=== PATIENT | male | born 1955 | race Caucasian/White ===

== ENCOUNTER → 2020-01-30 | Outpatient (CLI) | payer BC ==
--- NOTE | 2020-01-30 14:39 | US ---
EXAMINATION TYPE: US kidneys/renal and bladder DATE OF EXAM: 01/30/2020 COMPARISON: NONE CLINICAL HISTORY: R31.9 HEMATURIA. Macroscopic hematuria. No pain. EXAM MEASUREMENTS: Right Kidney: 11.2 x 5.7 x 6.7 cm Left Kidney: 11.1 x 5.7 x 6.0 cm Right Kidney: No hydronephrosis or masses seen Left Kidney: No hydronephrosis or masses seen Bladder: Incompletely distended, anechoic Bilateral Jets seen There is no evidence for hydronephrosis at this point in time. No nephrolithiasis is seen. No wilfrid s are identified. The urinary bladder is anechoic. Bilateral ureteral jets are seen. IMPRESSION: Unremarkable renal ultrasound. No hydronephrosis or nephrolithiasis seen.
== END | disposition home or self-care (01) ==
LOC: RADUSWWP 13:59
PROVIDERS: ATTEND Internal Medicine
DX: R31.9 Hematuria, unspecified (principal)
CPT/HCPCS: 76770

== ENCOUNTER 2021-09-22 20:46 | Emergency (ER) | payer BC, MEDICARE ==
[2021-09-22 22:03] VITALS: TEMP 97.9
[2021-09-22] MEDS ORDERED: NAFCILLIN 2 GM in DEXTROSE 5% IN WATER 100 ML IVPB ONE ×2 (23:00)
--- NOTE | 2021-09-22 23:01 | ED ---
Extremity Problem HPI - General Chief complaint: Extremity Problem,Nontraumatic Stated complaint: R Leg Swelling/Redness Time Seen by Provider: 09/22/21 22:37 Source: patient Mode of arrival: ambulatory Limitations: no limitations - History of Present Illness Initial comments: This is a 65-year-old man who presents to have evaluation of his right lower leg. The patient states that he went to take a shower tonight and noticed that there was swelling, redness and warmth of the right leg. He had been in usual state of health until about 2 days ago. He states that yesterday he had taken the day off work because she was feeling fatigued and rundown. He was feeling a little better today and went to work. After work he was going to take a shower, he noticed that his right leg was red and swollen and presents here to be evaluated. The patient denies fever or chills. He has not had chest pain, dyspnea, hemoptysis, palpitations or lightheadedness. MD Complaint: extremity pain, extremity swelling -: hour(s) Location: right, lower extremity History of Same: No Radiation: none Quality: dull Consistency: constant Improves with: nothing Worsens with: nothing - Related Data Previous Rx's Medication Instructions Recorded Cephalexin [Keflex] 500 mg PO Q6HR #28 cap 09/23/21 Sulfamethox-Tmp 800-160Mg [Bactrim 2 each PO Q12HR #28 tab 09/23/21 Ds] Allergies Allergy/AdvReac Type Severity Reaction Status Date / Time No Known Allergies Allergy Verified 09/22/21 21:58 Review of Systems ROS Statement: Those systems with pertinent positive or pertinent negative responses have been documented in the HPI. ROS Other: All systems not noted in ROS Statement are negative. Constitutional: Denies: fever, chills, weakness Respiratory: Denies: cough, dyspnea, hemoptysis Cardiovascular: Reports: as per HPI, edema. Denies: chest pain, palpitations, orthopnea, syncope Endocrine: Reports: fatigue Gastrointestinal: Denies: abdominal pain, vomiting, diarrhea Genitourinary: Denies: dysuria, hematuria Musculoskeletal: Reports: as per HPI, myalgia. Denies: back pain Skin: Denies: rash Neurological: Denies: headache, weakness, numbness Past Medical History Past Medical History: GERD/Reflux, Hypertension, Prostate Disorder History of Any Multi-Drug Resistant Organisms: None Reported Past Surgical History: Hernia Repair, Joint Replacement Past Psychological History: No Psychological Hx Reported Smoking Status: Never smoker Past Alcohol Use History: Occasional Past Drug Use History: None Reported General Exam Limitations: no limitations General appearance: alert, in no apparent distress Head exam: Present: atraumatic, normocephalic Eye exam: Present: normal appearance. Absent: scleral icterus, conjunctival injection ENT exam: Present: normal oropharynx Neck exam: Present: normal inspection Respiratory exam: Present: normal lung sounds bilaterally. Absent: respiratory distress, wheezes, rales, rhonchi, stridor, accessory muscle use Cardiovascular Exam: Present: regular rate, normal rhythm, normal heart sounds. Absent: systolic murmur, diastolic murmur GI/Abdominal exam: Present: soft. Absent: distended, tenderness, guarding, rebound, rigid, mass Extremities exam: Present: normal inspection, normal capillary refill, pedal edema (Right lower leg). Absent: calf tenderness Back exam: Present: normal inspection. Absent: CVA tenderness (R), CVA te nderness (L) Neurological exam: Present: alert Skin exam: Present: warm, dry, intact, erythema (Right leg proximal to the medial malleolus.) Course Vital Signs 09/22/21 09/22/21 21:59 23:49 Temperature 97.9 F Pulse Rate 71 68 Respiratory 20 18 Rate Blood Pressure 161/83 133/58 O2 Sat by Pulse 95 98 Oximetry Medical Decision Making - Lab Data Result diagrams: 09/22/21 23:08 09/22/21 23:08 Lab Results 09/22/21 09/22/21 Range/Units 23:08 23:08 WBC 9.3 (3.8-10.6) k/uL RBC 4.89 (4.30-5.90) m/uL Hgb 13.8 (13.0-17.5) gm/dL Hct 43.0 (39.0-53.0) % MCV 87.9 (80.0-100.0) fL MCH 28.3 (25.0-35.0) pg MCHC 32.1 (31.0-37.0) g/dL RDW 13.0 (11.5-15.5) % Plt Count 199 (150-450) k/uL MPV 7.2 Neutrophils % 71 % Lymphocytes % 14 % Monocytes % 9 % Eosinophils % 3 % Basophils % 1 % Neutrophils # 6.6 (1.3-7.7) k/uL Lymphocytes # 1.3 (1.0-4.8) k/uL Monocytes # 0.8 (0-1.0) k/uL Eosinophils # 0.3 (0-0.7) k/uL Basophils # 0.1 (0-0.2) k/uL Sodium 138 (137-145) mmol/L Potassium 4.3 (3.5-5.1) mmol/L Chloride 106 (98-107) mmol/L Carbon Dioxide 22 (22-30) mmol/L Anion Gap 10 mmol/L BUN 32 H (9-20) mg/dL Creatinine 1.11 (0.66-1.25) mg/dL Est GFR (CKD-EPI)AfAm 79 (>60 ml/min/1.73 sqM) Est GFR (CKD-EPI)NonAf 69 (>60 ml/min/1.73 sqM) Glucose 139 H (74-99) mg/dL Calcium 9.7 (8.4-10.2) mg/dL C-Reactive Protein 14.7 H (<1.0) mg/dL Disposition Clinical Impression: Cellulitis Disposition: HOME SELF-CARE Condition: Good Instructions (If sedation given, give patient instructions): Cellulitis (ED) Prescriptions: Sulfamethox-Tmp 800-160Mg [Bactrim Ds] 2 each PO Q12HR #28 tab Cephalexin [Keflex] 500 mg PO Q6HR #28 cap Is patient prescribed a controlled substance at d/c from ED?: No Referrals: Samantha Crodova MD [Primary Care Provider] - 1-2 days
[2021-09-22 23:19] LABS: Basophils # (A) 0.1 k/uL (0-0.2); Basophils % (A) 1 %; Eosinophils # (A) 0.3 k/uL (0-0.7); Eosinophils % (A) 3 %; HGB 13.8 gm/dL (13.0-17.5); Lymphocytes # (A) 1.3 k/uL (1.0-4.8); Lymphocytes % (A) 14 %; MCH 28.3 pg (25.0-35.0); MCHC 32.1 g/dL (31.0-37.0); MCV 87.9 fL (80.0-100.0); Mean Platelet Volume 7.2; Monocytes # (A) 0.8 k/uL (0-1.0); Monocytes % (A) 9 %; Neutrophils # (A) 6.6 k/uL (1.3-7.7); Neutrophils % (A) 71 %; Platelet Count 199 k/uL (150-450); RBC 4.89 m/uL (4.30-5.90); WBC 9.3 k/uL (3.8-10.6)
[2021-09-22 23:32] LABS: Calcium 9.7 mg/dL (8.4-10.2); Potassium 4.3 mmol/L (3.5-5.1)
[2021-09-22 23:50] VITALS: RESP 18
[2021-09-22 23:55] LABS: C Reactive Protein 14.7 mg/dL (<1.0)
--- NOTE | 2021-09-22 23:57 | US ---
EXAMINATION TYPE: US venous doppler duplex LE RT DATE OF EXAM: 09/22/2021 11:40 PM COMPARISON: NONE CLINICAL HISTORY: R/O DVT, swelling. Swelling. Hx right knee surgery. No hx of DVT. Patient does not take blood thinners. SIDE PERFORMED: Right TECHNIQUE: The lower extremity deep venous system is examined utilizing real time linear array sonog brandon with graded compression, doppler sonography and color-flow sonography. VESSELS IMAGED: Common Femoral Vein Deep Femoral Vein Greater Saphenous Vein * Femoral Vein Popliteal Vein Small Saphenous Vein * Proximal Calf Veins (* superficial vessels) Right Leg: Hypoechoic area with hyperechoic center and vascularity seen within the right groin: 3.9 x 2.4 x 1.4 cm. No evidence of DVT in veins imaged at this time. IMPRESSION: No evidence of deep vein thrombosis in the right leg. There is prominent right inguinal lymph node.
[2021-09-23 02:40] VITALS: BP 137/98; PULSE 75
== END 2021-09-23 02:39 | disposition home or self-care (01) ==
LOC: EC 20:46
DX: L03.115 Cellulitis of right lower limb (principal); I10 Essential (primary) hypertension
CPT/HCPCS: 36415; 80048; 85025; 86140; 96360; 96361; 99283

== ENCOUNTER 2024-07-24 19:28 | Outpatient (CLI) | payer MEDICARE ==
--- NOTE | 2024-08-11 11:10 | P.PCN ---
Date of Procedure: 07/24/24 Operative Findings: Polysomnography report Date of service is 07/24/2024 Pertinent history This is a 68-year-old male patient referred to me due to concerns of obstructive sleep apnea. The patient has chronic loud snoring and he has been stopping breathing in the middle of the night on multiple occasions as noted by the . He is encountered an episode of bradycardia and syncope and the patient was given a loop recorder and he was noted to have a slow heart rate/bradycardia at nighttime. He has a pacemaker in place with a backup rate of 60. He has loud snoring, limited hypersomnia with an [place] score of 5 and a body mass index of 36.3. Pertinent physical findings Height is 5 feet and 10 inches, weight is 255 pounds with a body mass index of 36.3 Technical description The patient was studied using a standard complex polysomnography protocol that included recording of the Lead II EKG, Central, occipital and frontal EEG, right and left outer canthus EOG, submental EMG, right and left anterior tibialis EMG, respiratory airflow by thermocouple and or pressure/flow transducer, respiratory efforts by abdominal and thoracic PVDF belts, oxygen saturation by cable oximetry. Position by observation synchronized the PSG. Equipment used: [employer]. Sleep characteristics The total recording duration was 361.5 minutes. The total sleep time was 297 minutes. The wake after sleep onset time was 53.5 minutes. The overall sleep efficiency was 82.2%. The latency to sleep onset was 12 minutes. The sleep architecture was characterized by 12.5% stage I, 79.6% stage II, 0% stage III, and 10.4% REM sleep. The total arousal index was 30.1. Latency to sleep onset was 12 minutes. The latency to REM sleep was 105.0 minutes. Respiratory analysis The sleep study demonstrated a total of 124 obstructive events of which 20 were obstructive apneas, 0 were mixed apneas and a total of 104 were obstructive hypopneas. The resulting AHI was 24.6. No central apneas were noted. Note that the patient's disease was worse during REM sleep. AHI during REM was 46.5. Oxygenation analysis The baseline pulse ox while awake was 94%. Lowest oxygen saturation was 83%. The patient spent approximately 2 hours and 46 minutes of sleep time below pulse ox of 89%. Minimum pulse ox during REM sleep was 87%. Sleep continuity summary The patient had total of 149 arousals with an arousal index of 30 and the respiratory arousal index was 13.1 Periodic limb movements A total of 41. At the moment activity with an index of 8.3. There was a total of 7 periodic limb movements with arousals with an index of 1.4 Cardiac summary The average heart rate was 60 with a minimum heart rate of 59 and a maximum heart of 62. No significant desaturation was encountered. His underlying cardiac rhythm was sinus. Assessment Obstructive sleep apnea, with an AHI of 24.6 consistent with moderately severe disease, worse during REM sleep with an AHI of 46.5 Mild nocturnal oxygen saturations History of nocturnal bradycardia, and the patient has a pacemaker in place History of syncope, patient has a pacemaker in place BPH Hypertension Acid reflux Obesity with a BMI of 36.6 Plan Will discuss findings with the patient. Patient does have moderately severe KHANG with significant worsening during REM sleep. He would obviously benefit from CPAP therapy. He already has a pacemaker in place to counteract any significant bradycardias. Encourage weight loss. Maintain sleep hygiene measures. Recommend CPAP therapy and we will proceed with a CPAP titration if the patient is willing to undertake the treatment. Will continue to follow.
== END 2024-07-25 05:20 | disposition home or self-care (01) ==
LOC: 3 N SLEEP 19:28
PROVIDERS: ATTEND Internal Medicine Critical Care Medicine
CPT/HCPCS: 95810